=== PATIENT | female | born 2000 | race African-American/Black ===

== ENCOUNTER 2021-10-15 14:32 | Observation (INO) | payer OTHER, SELFPAY ==
--- NOTE | ~2021-10-15 | CT_ITS ---
EXAMINATION: CT abdomen pelvis w con DATE: 10/15/2021 17:18 INDICATION: Right lower quadrant abdominal pain TECHNIQUE: Computed tomography (CT) of the abdomen and pelvis was performed with 100 cc Omnipaque 350 intravenous contrast. Automated exposure control and iterative reconstruction technique were employe d. Exam dose: 1506.55 mGy-cm total exam DLP. COMPARISON: None. FINDINGS: The lung bases are clear. Normal heart size. No pericardial or pleural effusion. The liver, spleen, pancreas, gallbladder, bile ducts, pancreatic duct, and adrenal glands appear norm al. No renal space occupying mass lesion. There is a pinpoint upper pole nonobstructing left renal calculus and a pinpoint lower pole left chalino l nonobstructing calculus. No ureteral calculus or hydroureteronephrosis. Normal caliber of the abdominal aorta. No intraperitoneal or retroperitoneal or pelvic mass lesion or adenopathy or ascites. Normal caliber of the abdominal aorta. No intraperitoneal or retroperitoneal or pelvic mass lesion or adenopathy or ascites. The uterus and adnexal areas and urinary bladder are unremarkable. The appendix is thickened, measuring up to 10 mm diameter, with mild periappendiceal fat stranding. N o abscess is identified. No intraperitoneal free air is detected. The findings suggest acute appendic itis without rupture. No bowel obstruction. Mild diverticulosis of the left colon; no CT evidence of diverticulitis. IMPRESSION: Acute uncomplicated appendicitis Mild left colon diverticulosis 2. Punctate nonobstructing left renal calculi; no urinary tract obstruction or hydronephrosis Reviewed, dictated and finalized at [facility]. Reviewed, dictated and finalized at [facility]. [employer]INEER
[2021-10-15 14:34] VITALS: BP 177/88; PULSE 116; RESP 18; TEMP 35.9; O2SAT 100
[2021-10-15 15:50] LABS: Basophils Percent Auto 0.4 % (0.2-1.2); Eosinophils Absolute Auto 0.1 K/mm3 (0-0.3); Hemoglobin 13.2 g/dL (12.0-15.0); Immature Granulocyte Absolute 0.04 K/mm3 (0.00-0.031); Immature Granulocyte Percent A 0.4 % (0-0.5); Lymphocytes Absolute Auto 2.53 K/mm3 (0.9-3.2); Lymphocytes Percent Auto 23.3 % (18.3-44.2); Mean Corpuscular HGB Conc 32.2 g/dl (32-36); Mean Corpuscular Hemoglobin 27.6 pg (26-34); Mean Corpuscular Volume 85.6 fl (80-100); Mean Platelet Volume 9.2 fl (7.4-10.4); Monocytes Absolute Auto 0.6 K/mm3 (0.1-0.6); Monocytes Percent Auto 5.6 % (2.6-8.5); Neutrophils Absolute Auto 7.5 K/mm3 (1.3-6.7); Neutrophils Percent Auto 69.3 % (45.5-73.1); Platelet Count Result 343 k/mm3 (150-375); Red Blood Count 4.79 M/mm3 (4.2-5.4); White Blood Count 10.9 K/mm3 (4.5-10.0)
[2021-10-15 16:15] LABS: Beta HCG Quantitative < 2.39 mIU/ML
[2021-10-15 16:47] LABS: Lipase 49 U/L (23-300)
[2021-10-15] MEDS: MORPHINE SULFATE (*CRX) 4 MG/ML INJ IV PUSH (16:54)
[2021-10-15] MEDS: SODIUM CHLORIDE 0.9% IV 1,000 ML 999 ML IV CONT (16:54)
[2021-10-15] MEDS: ONDANSETRON INJ 4 MG/2 ML VIAL IV PUSH ×2 (16:54→22:20)
[2021-10-15 17:05] LABS: Add Urine Microscopic? YES; Appearance Urine Clear (Clear); Bacteria Urine Trace /hpf; Bilirubin Urine Negative (Negative); Blood Urine 3+ (Negative); Color Urine Yellow (Yellow); Glucose Urine UA Negative (Negative); Ketones Urine Negative (Negative); Leukocyte Esterase Ur Negative LEU/UL (Negative); Mucus Urine Rare /lpf; Nitrate Urine Negative (Negative); Protein Urine Negative (Negative); RBC Urine 21-50 /hpf (0-2); Specific Grav Ur 1.029 (1.001-1.035); Squamous Epithelial Cell Urine Few /hpf (Few)
[2021-10-15 17:19] LABS: Estimated CRCL calculation 160 ml/min; Estimated Glomerular Filt Rate > 60
[2021-10-15 17:22] VITALS: PULSE 99; RESP 19; O2SAT 86
[2021-10-15 17:45] VITALS: PULSE 97; RESP 17; O2SAT 100
[2021-10-15 18:00] VITALS: PULSE 100; RESP 18; O2SAT 100
--- NOTE | 2021-10-15 18:05 | ED.ABDPAIN ---
HPI - Abdominal Pain General Chief Complaint: Abdominal Pain Stated Complaint: abd pain, ? Time Seen by Provider: 10/15/21 15:24 Source: patient Mode of arrival: ambulatory Limitations: no limitations History of Present Illness HPI narrative: 21 years old -Russian female presents with right lower quadrant pain started yesterday, constant, worse with certain movement. Patient denies any fever, chills, nausea, vomiting. Last menstrual cycle 1 month ago. Related Data Allergies Allergy/AdvReac Type Severity Reaction Status Date / Time No Known Allergies Allergy Verified 10/15/21 14:36 Review of Systems Review of Systems: CONSTITUTIONAL: Denies fever, chills, or sweats. EYES: Denies visual changes, redness, or discharge. ENT: Denies rhinorrhea, congestion, sore throat, or otalgia. CARDIOVASCULAR: Denies chest pain, palpitations, or edema. RESPIRATORY: Denies cough or dyspnea. GASTROINTESTINAL: Denies abdominal pain, nausea, vomiting, or diarrhea. GENITOURINARY: Denies dysuria or hematuria. SKIN: Denies rash or itching. MUSCULOSKELETAL: Denies back pain, joint pain, or myalgia. NEUROLOGIC: Denies headache, numbness, or weakness. PSYCHIATRIC: Denies anxiety or depression. Exam Narrative: General appearance: Well-developed, well-nourished Skin: Normal color Head: Normocephalic, nontraumatic Eyes: Clear conjunctiva ENT: Oropharynx normal, ears normal, nose normal Neck: Supple, nontender Chest and respiratory: Airway patent, no respiratory distress, no accessory muscle use Heart: Regular rate/rhythm Abdomen: Soft, focal tenderness right lower quadrant, positive guarding , no organomegaly, quiet bowel sounds Vascular: Normal peripheral pulses, normal capillary refill. 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, no gross motor deficit Course Course Emergency Course: Stable Consultations Consultation #1: DR HAWKINS Date: 10/15/21 Time: 18:20 Vital Signs Vital signs: Vital Signs Temperature 35.9 C L 10/15/21 14:34 Pulse Rate 116 H 10/15/21 14:34 Respiratory Rate 18 10/15/21 14:34 Blood Pressure 177/88 H 10/15/21 14:34 Pulse Oximetry 100 10/15/21 14:34 Temperature 35.9 C L 10/15/21 14:34 Pulse Rate 116 H 10/15/21 14:34 Respiratory Rate 18 10/15/21 14:34 Blood Pressure 177/88 H 10/15/21 14:34 Pulse Oximetry 100 10/15/21 14:34 MDM - Abdominal Pain MDM Narrative Medical decision making narrative: Right lower quadrant pain. Appendicitis versus ruptured ovarian cyst is my concern. Differential Diagnosis Differential diagnosis: Likely abdominal pain, acute appendicitis, calculus of kidney, constipation and diverticulitis Lab Data Result diagrams: 10/15/21 15:41 10/15/21 17:13 Labs: Lab Results 10/15/21 10/15/21 10/15/21 Range/Units 15:40 15:41 15:41 WBC 10.9 H (4.5-10.0) K/mm3 RBC 4.79 (4.2-5.4) M/mm3 Hgb 13.2 (12.0-15.0) g/dL Hct 41.0 (37.0-47.0) % MCV 85.6 (80-100) fl MCH 27.6 (26-34) pg MCHC 32.2 (32-36) g/dl RDW 13.0 (11.5-14.5) % Plt Count 343 (150-375) k/mm3 MPV 9.2 (7.4-10.4) fl Immature Gran % (Auto) 0.4 (0-0.5) % Neut % (Auto) 69.3 (45.5-73.1) % Lymph % (Auto) 23.3 (18.3-44.2) % [place] % (Auto) 5.6 (2.6-8.5) % Eos % (Auto) 1.0 (0-4.4) % Baso % (Auto) 0.4 (0.2-1.2) % Lymph # (Auto) 2.53 (0.9-3.2) K/mm3 [place] # (Auto) 0.6 (0.1-0.6) K/mm3 Eos # (Auto) 0.1 (0-0.3) K/mm3 Baso # (Auto) 0.0 (0.0-0.1) K/mm3 Abs Immat Gran (auto) 0.04 H (0.00-0.031) K/mm3 Absolute Neuts (auto) 7.5 H (1
[2021-10-15 18:45] VITALS: PULSE 92; RESP 19; O2SAT 100
[2021-10-15] MEDS: LACTATED RINGERS 1,000 ML 150 ML IV CONT ×2 (19:20→22:04)
[2021-10-15] MEDS: HYDROmorphone HCL INJ (*CRX) 1 MG/ML SYR 0.5 MG IV PUSH ×2 (19:30→22:09)
[2021-10-15 20:04] LABS: SARS-CoV-2 RNA PCR Negative
[2021-10-15 22:00] VITALS: BP 138/80; PULSE 98; RESP 20; TEMP 36.9; O2SAT 100; BMI 60.9
--- NOTE | 2021-10-15 23:15 | ADMGEN ---
This patient, Janie Rodriges, was admitted to [facility] Surg Room 316-02. Patient/family oriented to hospital policies and general routines including ID bracelet, bed and alarms, visiting hours, pain management, procedures, bathroom and other care routines, personal items, smoking policy, room service/diet, and visiting hours. Information on how to activate the Rapid Response Team has been discussed. Patient/Family are encouraged to report perceived risks to care and to ask questions if they do not understand what they are told or what they should do.
[2021-10-16] VITALS (10 sets, daily range): BP systolic 110–153; BP diastolic 76–95; PULSE 82–107; RESP 14–22; TEMP 36–36.6; O2SAT 93–100; BMI 60.9
[2021-10-16] MEDS: LACTATED RINGERS 1,000 ML 150 ML IV CONT (04:54)
[2021-10-16] MEDS: ONDANSETRON INJ 4 MG/2 ML VIAL IV PUSH (07:56)
[2021-10-16 09:38] LABS: Hematocrit 39.8 % (37.0-47.0); Hemoglobin 12.6 g/dL (12.0-15.0); Mean Corpuscular HGB Conc 31.7 g/dl (32-36); Mean Corpuscular Hemoglobin 28.1 pg (26-34); Mean Corpuscular Volume 88.6 fl (80-100); Mean Platelet Volume 9.3 fl (7.4-10.4); Platelet Count Result 332 k/mm3 (150-375); Red Blood Count 4.49 M/mm3 (4.2-5.4); White Blood Count 9.7 K/mm3 (4.5-10.0)
[2021-10-16] MEDS: ENOXAPARIN 40 MG/0.4 ML SYRINGE SUB-Q (09:41)
--- NOTE | 2021-10-16 10:04 | PM.IMHP ---
H&P: HPI History of Present Illness Date/Time: 10/16/21 10:04 Chief Complaint: Abdominal pain, nausea Narrative: Patient is a 21-year-old woman who 2 days ago started having some mid even upper abdominal pain. This moved to the right lower quadrant. It has become more severe. She also has some nausea but no vomiting. In the emergency room she was noted to have tenderness in the right lower quadrant. [place] white blood [place] [id number]. She had some tachycardia but was afebrile. CT scan of the abdomen pelvis was done and showed a 10 mm dilated appendix with a thickened wall in some periappendiceal stranding suggestive of acute appendicitis. She was started on IV antibiotics but continues to have pain and nausea. She is admitted now for treatment of acute appendicitis. Review of Systems Review of Systems: All systems reviewed & are unremarkable except as noted in HPI and below Constitutional: Constitutional: Denies chills and Denies fever(s) Cardiovascular: Cardiovascular: Denies chest pain, Denies diaphoresis, Denies dyspnea and Denies paroxysmal nocturnal dyspnea Respiratory: Respiratory: Denies chest congestion, Denies cough and Denies dyspnea Integumentary/Breasts: Skin/Breast: Denies lesions and Denies rash PMFSH Social History Social History Smoking status: Never smoker Second hand tobacco smoke exposure: No Alcohol intake: never Substance use: never Substance use type: does not use Spiritual care concerns: No Meds Home Medications and Allergies Home Medications Medication Instructions Recorded Confirmed Type No Home Medications 10/15/21 10/15/21 History Allergies Allergy/AdvReac Type Severity Reaction Status Date / Time No Known Allergies Allergy Verified 10/15/21 14:36 Vital Signs Vital Signs - 24 hr 10/15/21 14:34 10/15/21 17:22 10/15/21 17:45 Temperature 35.9 C L Pulse Rate 116 H 99 97 Respiratory Rate 18 19 17 Blood Pressure 177/88 H Pulse Oximetry 100 86 L 100 10/15/21 18:00 10/15/21 18:45 10/15/21 22:00 Temperature 36.9 C Pulse Rate 100 92 98 Respiratory Rate 18 19 20 Blood Pressure 138/80 Pulse Oximetry 100 100 100 10/16/21 04:35 10/16/21 05:45 10/16/21 09:50 Temperature 36.5 C 36.0 C L Pulse Rate 101 H 95 Respiratory Rate 18 18 Blood Pressure 110/80 141/86 H Pulse Oximetry 100 98 98 Exam Const: General: cooperative, no acute distress, alert, awake, tired appearing, uncomfortable and well groomed; No confusion Nutritional Appearance: obese morbidly obese (BMI 61) Orientation/consciousness: No confusion Limitations: no limitations HENMT: Head: normocephalic, atraumatic, no contusions and no scalp lesions Ears: external ears normal General nose exam: Normal external nose present Face and sinus: face symmetric and dry mucous membranes Mouth: Yes Normal oral and palatal mucosa present and Yes tongue normal Throat: posterior oropharynx normal Eyes: Conjunctivae: conjunctivae normal Sclera: sclerae normal Pupils: Equal, round and reactive pupils present EOM: EOMs intact bilaterally Neck: Neck: normal visual inspection, no lymphadenopathy, trachea midline, supple, nontender and no JVD Thyroid: abnormal thyroid Resp: Effort & Inspection: normal respiratory effort Auscultation: clear to auscultation bilaterally Cardio: Rate: regular rate Rhythm: regular rhythm GI: Inspection: normal to inspection, obesity, no scars and no visible herniation GI Palp: Yes Soft to palpation, Yes Tenderness to palpation present (GI) (Mostly right lower quadrant), Yes Guarding due to palpation present (GI) (Right lower quadrant), No Hepatomegaly present, No Splenomegaly present and Yes Rebound tenderness present Auscultation: normal bowel sounds Skin: General skin exam: normal color, turgor normal and no erythema Lesions: no lesions Rashes: no rashes Trauma: no lacerations or abrasions Neuro:
--- NOTE | 2021-10-16 13:38 | PC.NURSE ---
This patient, Janie Rodriges, was transferred to [SURGERY] on 10/16/21 at 1330. Personal belongings sent with patient. Report given to [ ]. Appropriate documentation sent with patient. Pt staying in PACU after appendectomy.
--- NOTE | 2021-10-16 14:03 | WPDANESEPPF ---
Anes - Initial Pre Proc Eval Procedure: Operation Date: 10/16/21 15:00 Proposed Procedures p Laparoscopic Appendectomy - Av Gallegos MD Date/Time: 10/16/21 14:03 Surgeon: Av Gallegos MD Pre Op Diagnosis: Acute Appendicitis Patient Data Age: 21 Gender: F Height: 1.52 m Weight: 141.5 kg Last Vital Signs Temp 36.0 C L 10/16/21 09:50 Pulse 95 10/16/21 09:50 Resp 18 10/16/21 09:50 BP 141/86 H 10/16/21 09:50 Pulse Ox 98 10/16/21 09:50 Allergies Allergy/AdvReac Type Severity Reaction Status Date / Time No Known Allergies Allergy Verified 10/15/21 14:36 Home Medications Medication Instructions Recorded Confirmed Type No Home Medications 10/15/21 10/15/21 History Laboratory Tests 10/15/21 10/15/21 10/15/21 15:40 15:41 15:41 WBC 10.9 K/mm3 H K/mm3 (4.5-10.0) RBC 4.79 M/mm3 M/mm3 (4.2-5.4) Hgb 13.2 g/dL g/dL (12.0-15.0) Hct 41.0 % % (37.0-47.0) MCV 85.6 fl fl (80-100) MCH 27.6 pg pg (26-34) MCHC 32.2 g/dl g/dl (32-36) RDW 13.0 % % (11.5-14.5) Plt Count 343 k/mm3 k/mm3 (150-375) MPV 9.2 fl fl (7.4-10.4) Immature Gran % (Auto) 0.4 % % (0-0.5) Neut % (Auto) 69.3 % % (45.5-73.1) Lymph % (Auto) 23.3 % % (18.3-44.2) [place] % (Auto) 5.6 % % (2.6-8.5) Eos % (Auto) 1.0 % % (0-4.4) Baso % (Auto) 0.4 % % (0.2-1.2) Lymph # (Auto) 2.53 K/mm3 K/mm3 (0.9-3.2) [place] # (Auto) 0.6 K/mm3 K/mm3 (0.1-0.6) Eos # (Auto) 0.1 K/mm3 K/mm3 (0-0.3) Baso # (Auto) 0.0 K/mm3 K/mm3 (0.0-0.1) Abs Immat Gran (auto) 0.04 K/mm3 H K/mm3 (0.00-0.031) Absolute Neuts (auto) 7.5 K/mm3 H K/mm3 (1.3-6.7) Absolute Nucleated RBC 0.0 K/mm3 K/mm3 (0.0-0.012) Nucleated RBC % 0.0 % % (0.0-0.2) Creatinine Estim Creat Clear Calc Estimated GFR Lipase 49 U/L U/L (23-300) Beta HCG, Quant < 2.39 mIU/ML mIU/ML Urine Color Urine Appearance Urine pH Ur Specific [place] Urine Protein Urine Glucose (UA) Urine Ketones Ur Blood (Man) Urine Nitrate Urine Bilirubin Urine Urobilinogen Leukocyte Esterase Rfl Urine RBC Urine WBC Ur Squamous Epith Cells Urine Bacteria Urine Mucus SARS-CoV-2 RNA (RT-PCR) Blood Type Antibody Screen Screen Baby's Blood Type Baby's JUAN Doses of RhIg Required 10/15/21 10/15/21 10/15/21 15:41 16:54 17:13 WBC RBC Hgb Hct MCV MCH MCHC RDW Plt Count MPV Immature Gran % (Auto) Neut % (Auto) Lymph % (Auto) [place] % (Auto) Eos % (Auto) Baso % (Auto) Lymph # (Auto) [place] # (Auto) Eos # (Auto) Baso # (Auto) Abs Immat Gran (auto) Absolute Neuts (auto) Absolute Nucleated RBC Nucleated RBC % Creatinine 0.60 mg/dL L mg/dL (0.7-1.2) Estim Creat Clear Calc 160 ml/min ml/min Estimated GFR > 60 (59 - ) Lipase Beta HCG, Quant Urine Color Yellow (Yellow) Urine Appearance Clear (Clear) Urine pH 5.0 (5.0-9.0) Ur Specific [place] 1.029 (1.001-1.035) Urine Protein Negative mg/dL mg/dL (Negative) Urine Glucose (UA) Negative mg/dL mg/dL (Negative) Urine Ketones Negative
[2021-10-16] MEDS: LACTATED RINGERS 1,000 ML 30 ML IV CONT ×2 (14:09→16:08)
[2021-10-16] MEDS: SCOPOLAMINE 1.5 MG PATCH TRANSDERM (14:10)
--- NOTE | 2021-10-16 14:44 | WPDHPUPDATE1 ---
History and Physical Update Update Date/Time: 10/16/21 14:44 History and Physical has been reviewed, including an updated exam of the patient. There are NO changes in the patient's condition. Risks, benefits, and alternatives have been discussed and questions answered. Patient agrees to proceed with procedure.
[2021-10-16] MEDS: ceFAZolin 3 GM/D5W 100 ML 100 ML IVPB (15:03)
[2021-10-16] MEDS: BUPIVACAINE/EPINEPHRINE 0.5% 30 ML VIAL INFILTRATE (15:51)
--- NOTE | 2021-10-16 16:01 | W.PM.PROC2 ---
Procedure Note - Detailed Date of Procedure 10/16/21 Pre-op Diagnosis Acute Appendicitis Post-op Diagnosis same Procedure Performed Laparoscopic appendectomy Surgeon Av Gallegos MD Family Medicine Physician Assistant Zehra PENA Anesthesia general and local (0.5% Marcaine with epinephrine) Indications Patient came to the emergency room with right lower quadrant abdominal pain and nausea. Her white count was slightly elevated and she was tachycardic. She had tenderness with guarding in the right lower quadrant. CT scan showed early acute appendicitis. She is taken to surgery now for laparoscopic appendectomy. Findings Acute non perforated appendicitis Description of Procedure Patient was taken to surgery and induced into general anesthesia. The abdomen is prepped and draped. Trocars were placed in the usual fashion using a 5 mm camera and applied Medical optical trocars. Two 5 mm ports were placed as well as a left lower quadrant 10 11 port. Patient was placed in Trendelenburg with the right-side elevated. The appendix was found fairly easily. It did appear inflamed but there was no evidence of gangrenous change or perforation. The appendix was elevated anteriorly. We used the cautery to dissect out the appendiceal artery. The appendiceal artery was then thoroughly cauterized and divided. I then dissected the remaining mesoappendix and skeletonized the base of the appendix. I then ligated the base of the appendix with a Vicryl endoloop. The appendix was amputated just above the base and the mucosa of the appendiceal stump was cauterized. The appendix was placed immediately in an Endo-Catch bag. It was retrieved through the 10 11 left lower quadrant trocar site. We then replaced the left lower quadrant trocar reviewed the areas of dissection as well as the appendiceal stump. All looked good with no evidence of bleeding or other problems. We then evacuated CO2 and removed the trocar sleeves. Skin wounds were closed with subcuticular 4-0 Monocryl skin suture. The wounds were dressed with Exofin surgical adhesive. Patient was awakened and taken to recovery in good condition sponge and needle counts were correct x2. Estimated Blood Loss -5 Urine Output 300 Drains No Packing No Pathology yes (Appendix) Complications No immediate complications Condition stable Disposition PACU
--- NOTE | 2021-10-16 16:11 | PM.DS ---
DS: Admitting Diagnosis Discharge Date 10/16/2021 Admitting Diagnosis Acute appendicitis DS: Discharge Diagnosis Discharge Diagnosis (1) Acute appendicitis: Qualifiers: Acute appendicitis type: unspecified acute appendicitis type Qualified Code(s): K35.80 - Unspecified acute appendicitis Code(s): K35.80 - Unspecified acute appendicitis Status: Acute (2) Morbid obesity with BMI of 60.0-69.9, adult: Code(s): E66.01 - Morbid (severe) obesity due to excess calories; Z68.44 - Body mass index [BMI] 60.0-69.9, adult Status: Chronic DS: Summary Hospital Course Hospital Course: Patient was admitted with right lower quadrant pain and evidence of acute appendicitis by evaluation and CT scan. She was started on Zosyn antibiotics. Discussion regarding medical treatment versus surgical treatment was carried out. Patient continued to have nausea and right lower quadrant pain. We opted to proceed with laparoscopic appendectomy which was done on 10/16/2021. The surgery went well. Patient had the clinical appearance of acute non perforated appendicitis. She was doing well and able to be discharged after a period of observation. Status at Discharge Functional status at discharge: independent ambulation Overall status at discharge: patient is progressing back to baseline Time Spent with Patient Time attestation: Total time spent providing and/or coordinating discharge services: DS: Data Data Completed and Pending Pending studies at discharge: Pending at discharge 10/16/21 15:46 Surgical [PTH] Routine Labs on day of discharge: Labs from last 24 hours 10/16/21 10/15/21 10/15/21 08:57 19:21 17:13 WBC 9.7 RBC 4.49 Hgb 12.6 Hct 39.8 MCV 88.6 MCH 28.1 MCHC 31.7 L RDW 13.0 Plt Count 332 MPV 9.3 Creatinine 0.60 L Estim Creat Clear Calc 160 Estimated GFR > 60 Lipase Beta HCG, Quant Urine Color Urine Appearance Urine pH Ur Specific [place] Urine Protein Urine Glucose (UA) Urine Ketones Ur Blood (Man) Urine Nitrate Urine Bilirubin Urine Urobilinogen Leukocyte Esterase Rfl Urine RBC Urine WBC Ur Squamous Epith Cells Urine Bacteria Urine Mucus SARS-CoV-2 RNA (RT-PCR) Negative Blood Type Antibody Screen Screen Baby's Blood Type Baby's JUAN Doses of RhIg Required 10/15/21 10/15/21 10/15/21 16:54 15:41 15:41 WBC RBC Hgb Hct MCV MCH MCHC RDW Plt Count MPV Creatinine Estim Creat Clear Calc Estimated GFR Lipase Beta HCG, Quant < 2.39 Urine Color Yellow Urine Appearance Clear Urine pH 5.0 Ur Specific [place] 1.029 Urine Protein Negative Urine Glucose (UA) Negative Urine Ketones Negative Ur Blood (Man) 3+ H Urine Nitrate Negative Urine Bilirubin Negative Urine Urobilinogen 2.0 H Leukocyte Esterase Rfl Negative Urine RBC 21-50 H Urine WBC 4-6 H Ur Squamous Epith Cells Few Urine Bacteria Trace Urine Mucus Rare SARS-CoV-2 RNA (RT-PCR) Blood Type AB Positive Antibody Screen Negative Screen TNP Baby's Blood Type Not Reportable Baby's JUAN Not Reportable Doses of RhIg Required 0 10/15/21 15:40 WBC RBC Hgb Hct MCV MCH MCHC RDW Plt Count MPV Creatinine Estim Creat Clear Calc Estimated GFR Lipase 49 Beta HCG, Quant Urine Color Urine Appearance Urine pH Ur Specific [place] Urine Protein Urine Glucose (UA) Urine Ketones Ur Blood (Man) Urine Nitrate Urine Bilirubin Urine Urobilinogen Leukocyte Esterase Rfl Urine RBC Urine WBC Ur Squamous Epith Cells Urine Bacteria Urine Mucus SARS-CoV-2 RNA (RT-PCR) Blood Type Antibody Screen Screen Baby's Blood Type Baby's JUAN Doses of RhIg Required Discharge Plan Discharge Attending physician on discharge: El
== END 2021-10-16 20:10 | disposition home or self-care (01) ==
LOC: ANHED 18:09 → ANH3MEDSUR 20:26
PROVIDERS: Admitting Provider Surgery; Emergency Provider Emergency Medicine; Visit Provider Surgery
PROC: 0DTJ4ZZ Resection of Appendix, Percutaneous Endoscopic Approach (ICD-10-PCS; CPT 44970; principal; 2021-10-16 15:00)
DX: K35.30 Acute appendicitis with localized peritonitis, without perforation or gangrene (principal); E66.01 Morbid (severe) obesity due to excess calories; Z68.44 Body mass index [BMI] 60.0-69.9, adult
CPT/HCPCS: 44970; 36415; 74177; 81001; 83690; 84702; 85025; 85027; 85461; 88304; 96361; 96365; 96372; 96375; 96376; 99285; A9270; C9803; G0378; G0379; J0131; J0330; J0690; J1170; J1650; J2250; J2270; J2405; J2543; J2704; J7030; J7120; Q9967; U0003; U0005

== ENCOUNTER 2022-04-02 00:37 | Emergency (ER) | payer OTHER, SELFPAY ==
--- NOTE | ~2022-04-02 | XR_ITS ---
EXAMINATION: XR chest 2V DATE: 04/02/2022 01:30 INDICATION: Left-sided chest pain with inspiration TECHNIQUE: PA and lateral views of the chest were obtained. COMPARISON: None FINDINGS: The lungs are clear with no focal airspace opacities, pulmonary edema, pleural effusion or pneumothor ax. The cardiomediastinal silhouette is normal. Visualized bones and soft tissues are unremarkable. IMPRESSION: 1. No acute cardiopulmonary disease. Reviewed, dictated and finalized at location [facility].
[2022-04-02 01:02] VITALS: BP 170/85; PULSE 91; RESP 17; TEMP 36.6; O2SAT 100
[2022-04-02 01:05] VITALS: PULSE 91; RESP 17; O2SAT 99
--- NOTE | 2022-04-02 01:23 | ECG_ITS ---
Measurements Intervals [place] Rate: 90 P: 35 CO: 154 QRS: 21 QRSD: 87 T: 1 QT: 315 QTc: 387 Interpretive Statements SINUS RHYTHM BORDERLINE ST-T WAVE ABNORMALITY- INFERIOR LEADS BASELINE ARTIFACT- I, III, AVR, AVL BORDERLINE ECG Electronically Signed On 04-02-2022 9:13:17 CDT by Edmond Hendricks D.O.
--- NOTE | 2022-04-02 01:24 | ED.GENADULT ---
HPI - General Adult General Chief complaint: Unspecified Stated complaint: left rib pain x1 wk Time Seen by Provider: 04/02/22 01:14 History of Present Illness HPI narrative: Patient is a 21-year-old female here for evaluation of atraumatic left rib pain for the past week. Patient states the pain is sharp and shooting in nature, begins under her left lateral breast and radiates to her left neck. States that the pain is intermittent in nature, notes it is worse with certain positions. Has not taken any medication for pain. Additionally notes that she has had intermittent palpitations for the past 2 weeks, where she feels that her heart skips a beat. These are not exertional. Denies any chest pain, syncope, headaches, visual changes, shortness of breath, or trauma to her thorax. Related Data Allergies Allergy/AdvReac Type Severity Reaction Status Date / Time No Known Allergies Allergy Verified 04/02/22 00:56 Review of Systems Review of Systems: Gen: Denies fevers or chills Eyes: Denies eye pain or visual change ENT: Denies congestion Respiratory: Denies shortness of breath or cough CV: Reports palpitations. Denies chest pain GI: Denies abdominal pain nausea, emesis or diarrhea : denies burning, urgency, frequency or hematuria Musculoskeletal: Reports left-sided rib pain Neuro: Denies numbness, tingling, weakness or focal weakness Skin: Denies rash Except as documented, all other systems reviewed and negative PMFSH Past Medical History Medical History (Updated 04/02/22 @ 02:32 by Dolores Pelayo PA-C) Asthma Surgical History Surgical History (Updated 02/08/22 @ 13:57 by Naomy Duckworth MA) Hx of appendectomy Social History Social History (Updated 02/08/22 @ 13:58 by Naomy Duckworth MA) Smoking status: Never smoker Second hand tobacco smoke exposure: No Alcohol intake: never Substance use: never Substance use type: does not use Additional occupation/education comments: [employer] Gender identity (if verbalized by the patient): Female Sexual Orientation (if Verbalized by the Patient): Straight or Heterosexual Spiritual care concerns: No Exam Narrative: APPEARANCE: Well appearing, no pain in distress, well-nourished. Obese Head: Normocephalic and atraumatic. EYES: PERRLA/EOMI, conjunctivae clear NOSE: No nasal drainage EARS: External ear normal in appearance THROAT: Oropharynx is clear. Mucous membranes are moist. NECK: Supple, full range of motion without pain. No adenopathy, no masses. no midline tenderness to c spine. RESPIRATORY: Airway patent, respirations nonlabored. Clear to auscultation bilaterally, no rales, rhonchi, wheezing. CARDIOVASCULAR: Regular rate and rhythm without murmurs, rubs, or gallops. ABDOMINAL: Normoactive bowel sounds. Soft, nontender, nondistended. No rebound tenderness or guarding. MUSCULOSKELETAL: reproducible pain along left side of thorax. Extremities are warm and well-perfused. Moves all extremities well. No edema. NEURO: Normal speech. No focal neurologic deficits. SKIN: Skin is warm and dry. No rashes. PSYCHIATRIC: Normal affect/mood. Course Vital Signs Vital signs: Vital Signs Temperature 36.6 C 04/02/22 01:02 Pulse Rate 91 04/02/22 01:02 Respiratory Rate 17 04/02/22 01:02 Blood Pressure 170/85 H 04/02/22 01:02 Pulse Oximetry 100 04/02/22 01:02 Oxygen Delivery Room Air 04/02/22 01:02 Temperature 36.6 C 04/02/22 01:02 Pulse Rate 91 04/02/22 01:05 Respiratory Rate 17 04/02/22 01:05 Blood Pressure 170/85 H 04/02/22 01:02 Pulse Oximetry 99 04/02/22 01:05 Oxygen Delivery Room Air 04/02/22 01:02 Medical Decision Making [facility] Narrative Medical decision making narrative: 21 year old female here for evaluation of left sided lateral rib pain for the past week and some intermittent, non-exertional heart palpitations. Her vital signs are normal, her pain is reproducible with palpation of her thorax so f
[2022-04-02 02:09] LABS: Basophils Percent Auto 0.3 % (0.2-1.2); Eosinophils Absolute Auto 0.1 K/mm3 (0-0.3); Eosinophils Percent Auto 0.8 % (0-4.4); Hemoglobin 12.5 g/dL (12.0-15.0); Immature Granulocyte Absolute 0.04 K/mm3 (0.00-0.031); Immature Granulocyte Percent A 0.3 % (0-0.5); Lymphocytes Absolute Auto 3.36 K/mm3 (0.9-3.2); Lymphocytes Percent Auto 28.1 % (18.3-44.2); Mean Corpuscular HGB Conc 31.3 g/dl (32-36); Mean Corpuscular Volume 86.4 fl (80-100); Mean Platelet Volume 9.4 fl (7.4-10.4); Monocytes Absolute Auto 0.8 K/mm3 (0.1-0.6); Monocytes Percent Auto 6.8 % (2.6-8.5); Neutrophils Absolute Auto 7.6 K/mm3 (1.3-6.7); Neutrophils Percent Auto 63.7 % (45.5-73.1); Platelet Count Result 337 k/mm3 (150-375); Red Blood Count 4.63 M/mm3 (4.2-5.4); Red Cell Distribution Width 13.5 % (11.5-14.5)
[2022-04-02 02:27] LABS: Alanine Aminotransferase 26 U/L (6-35); Albumin Level 4.2 g/dL (3.5-5.1); Alkaline Phosphatase 107 U/L (38-126); Anion Gap 7 mmol/L (8-16); Aspartate Amino Transferase 21 U/L (14-36); Bilirubin,Total 0.4 mg/dL (0.2-1.3); Blood Urea Nitrogen 15 mg/dL (7-17); Calcium 9.2 mg/dL (8.4-10.2); Carbon Dioxide 26 mmol/L (22-30); Chloride 106 mmol/L (98-107); Estimated CRCL calculation 108 ml/min; Estimated Glomerular Filt Rate > 60; Glucose 107 mg/dL (65-110); Potassium 4.2 mmol/L (3.4-5.0); Sodium 139 mmol/L (137-145)
[2022-04-02 03:21] VITALS: BP 147/99; PULSE 89; RESP 16; O2SAT 100
== END 2022-04-02 03:21 | disposition home or self-care (01) ==
PROVIDERS: Physician Assistant; Emergency Provider Emergency Medicine; PCP Nurse Practitioner Family
DX: R07.81 Pleurodynia (principal); J45.909 Unspecified asthma, uncomplicated; R94.31 Abnormal electrocardiogram [ECG] [EKG]
CPT/HCPCS: 36415; 71046; 80053; 81025; 84443; 85025; 93005; 99283

== ENCOUNTER 2022-10-18 14:55 | Outpatient (CLI) | payer OTHER, SELFPAY ==
--- NOTE | ~2022-10-18 | US_ITS ---
US breast LT limited 10/18/2022 15:52 Indication: Palpable left breast abnormality Procedure: High-resolution Limited ultrasound of the left breast Comparison: No prior studies for comparison. Findings: In the area palpable concern there is an oval encapsulated isoechoic mass with horizontal s triations, no posterior features and no internal vascularity measuring 1.7 cm, compatible with benign lipoma. No suspicious masses to suggest malignancy. Impression: 1: Benign left breast mass at 3:00, 11 cm from the nipple in the area of palpable concern, consistent with lipoma. BI-RADS CATEGORY 2 - BENIGN FINDINGS Reviewed, dictated and finalized at location A. RUCTIONAL TECHNOLOGIST Impression: 1: Benign left breast mass at 3:00, 11 cm from the nipple in the area of palpab le concern, consistent with lipoma. BI-RADS CATEGORY 2 - BENIGN FINDINGS
== END 2022-10-18 14:56 | disposition home or self-care (01) ==
LOC: ANHIMG 14:56
PROVIDERS: PCP Nurse Practitioner Family; Visit Provider Obstetrics & Gynecology
DX: N63.20 Unspecified lump in the left breast, unspecified quadrant (principal); N64.4 Mastodynia
CPT/HCPCS: 76642

== ENCOUNTER 2022-11-04 21:59 | Emergency (ER) | payer OTHER, SELFPAY ==
[2022-11-04 22:17] VITALS: BP 145/101; PULSE 79; RESP 16; TEMP 36.7; O2SAT 100
--- NOTE | 2022-11-04 23:51 | PC.NURSE ---
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
== END 2022-11-04 23:51 | disposition left against medical advice (07) ==
PROVIDERS: PCP Nurse Practitioner Family
DX: S61.214A Laceration without foreign body of right ring finger without damage to nail, initial encounter (principal); W26.8XXA Contact with other sharp object(s), not elsewhere classified, initial encounter
CPT/HCPCS: 99199

== ENCOUNTER 2023-01-22 12:48 | Emergency (ER) | payer OTHER, SELFPAY ==
--- NOTE | ~2023-01-22 | CT_ITS ---
EXAMINATION: CT abdomen pelvis wo con DATE: 01/22/2023 15:05 INDICATION: Left flank pain. History of kidney stones. Nausea and vomiting. TECHNIQUE: Computed tomography (CT) of the abdomen and pelvis was performed without intravenous contr ast. The dose-length product was 1400.26 mGy-cm. Automated exposure control and iterative reconstruct ion technique were employed. COMPARISON: CT dated 10/15/2021 FINDINGS: Lung bases are unremarkable. Heart size normal. No significant pleural or pericardial effus ion. The liver, spleen, pancreas, adrenal glands are unremarkable for noncontrast CT. There are nonob structing punctate bilateral renal stones. There is a left UPJ stone measuring 3 mm with hydronephros is. Bladder is unremarkable. No significant vascular abnormality. No lymphadenopathy. Nonobstructive bowel pattern. There are stable nonenlarged ileocolic lymph nodes which are likely reactive. IMPRESSION: 1. 3 mm left UPJ stone with mild hydronephrosis. 2: Nonobstructing bilateral nephrolithiasis. Reviewed, dictated and finalized at location L.
--- NOTE | ~2023-01-22 | XR_ITS ---
EXAMINATION: XR abdomen/kub 1V DATE: 01/22/2023 16:50 INDICATION: 3 mm UPJ stone TECHNIQUE: A supine view of the abdomen on 2 radiographs was obtained. COMPARISON: CT dated 01/23/2023 FINDINGS: The stone seen on prior CT in the bilateral kidneys and at the proximal left ureter are unable to be distinguished mottled appearing stool and bowel gas in the superimposed colon likely due to the small size of the stones. No dilated bowel to suggest obstruction. Bones are unremarkable. IMPRESSION: 1. Small bilateral nephrolithiasis seen on prior CT is unable to be appreciated on the plain radiogra phs likely due to combination of small size of the stones and superimposed stool and bowel gas. Reviewed, dictated and finalized at location A. IMPRESSION: 1. Small bilateral nephrolithiasis seen on prior CT is unable to be appreciated on the plain radiographs likely due to combination of small size of the stones and superimposed stool and bowel gas.
[2023-01-22 13:01] VITALS: BP 157/100; PULSE 84; RESP 16; TEMP 36.7; O2SAT 100
[2023-01-22 13:37] LABS: Basophils Percent Auto 0.1 % (0.2-1.2); Eosinophils Absolute Auto 0.1 K/mm3 (0-0.3); Hematocrit 38.2 % (37.0-47.0); Hemoglobin 11.9 g/dL (12.0-15.0); Immature Granulocyte Absolute 0.02 K/mm3 (0.00-0.031); Immature Granulocyte Percent A 0.2 % (0-0.5); Lymphocytes Absolute Auto 1.72 K/mm3 (0.9-3.2); Lymphocytes Percent Auto 19.3 % (18.3-44.2); Mean Corpuscular HGB Conc 31.2 g/dl (32-36); Mean Corpuscular Hemoglobin 26.7 pg (26-34); Mean Corpuscular Volume 85.7 fl (80-100); Mean Platelet Volume 9.4 fl (7.4-10.4); Monocytes Absolute Auto 0.5 K/mm3 (0.1-0.6); Monocytes Percent Auto 6.1 % (2.6-8.5); Neutrophils Absolute Auto 6.5 K/mm3 (1.3-6.7); Neutrophils Percent Auto 73.3 % (45.5-73.1); Platelet Count Result 306 k/mm3 (150-375); Red Blood Count 4.46 M/mm3 (4.2-5.4); Red Cell Distribution Width 13.3 % (11.5-14.5); White Blood Count 8.9 K/mm3 (4.5-10.0)
[2023-01-22 13:39] LABS: Appearance Urine Clear (Clear); Bacteria Urine None Seen /hpf; Bilirubin Urine Negative (Negative); Color Urine Yellow (Yellow); Glucose Urine UA Negative (Negative); Ketones Urine Negative (Negative); Leukocyte Esterase Ur Trace LEU/UL (Negative); Nitrate Urine Negative (Negative); Non Pathogenic Casts 0-2; Protein Urine Negative (Negative); RBC Urine 0-2 /hpf (0-2); Squamous Epithelial Cell Urine Few /hpf (Few)
[2023-01-22 13:50] LABS: Alanine Aminotransferase 19 U/L (6-35); Albumin Level 4.1 g/dL (3.5-5.1); Alkaline Phosphatase 101 U/L (38-126); Anion Gap 6 mmol/L (8-16); Aspartate Amino Transferase 20 U/L (14-36); Bilirubin,Total 0.7 mg/dL (0.2-1.3); Blood Urea Nitrogen 14 mg/dL (7-17); Calcium 8.7 mg/dL (8.4-10.2); Carbon Dioxide 30 mmol/L (22-30); Chloride 104 mmol/L (98-107); Estimated CRCL calculation 83 ml/min; Estimated Glomerular Filt Rate > 60; Glucose 104 mg/dL (65-110); Sodium 140 mmol/L (137-145)
[2023-01-22 13:53] LABS: Add Urine Microscopic? YES
--- NOTE | 2023-01-22 14:46 | ED.FEMALEGU ---
HPI - Female Genitourinary General Chief complaint: Urogenital-Female Stated complaint: Flank pain Time Seen by Provider: 01/22/23 13:37 Source: patient Mode of arrival: ambulatory Limitations: no limitations History of Present Illness HPI Narrative: Patient is a 22-year-old female who presents to the ED with reports of left flank and abdominal pain. Patient reports having pain for the last 3 days. She was seen at [facility] 3 days ago and diagnosed with a left-sided kidney stone. She is unsure of the size. She was discharged home with Flomax, Levaquin, Percocet, Zofran, however has had increasing pain today in her left flank and left lower abdomen. She reported having nausea and vomiting today, unable to keep down any food or drink, which prompted her presentation. She is able to urinate. Denies dysuria, hematuria. Denies fevers. Denies diarrhea, constipation. Related Data Allergies Allergy/AdvReac Type Severity Reaction Status Date / Time No Known Allergies Allergy Verified 11/04/22 22:00 Review of Systems Review of Systems: CONSTITUTIONAL: Denies fever, chills, or sweats. CARDIOVASCULAR: Denies chest pain. RESPIRATORY: Denies dyspnea. GASTROINTESTINAL: See HPI. GENITOURINARY: Denies dysuria or hematuria. SKIN: Denies rash or itching. MUSCULOSKELETAL: See HPI. NEUROLOGIC: Denies headache, numbness, or weakness. All systems reviewed & are unremarkable except as noted in HPI and below PMFSH Past Medical History Medical History Asthma Depression Hypertension Kidney stones Surgical History Surgical History History of tonsillectomy and adenoidectomy Hx of appendectomy (~10/2021) Social History Social History Smoking status: Never smoker Second hand tobacco smoke exposure: No Alcohol intake: never Substance use: never Substance use type: does not use Living arrangements: other Additional living arrangements comments: single Occupation/Education: occupation Additional occupation/education comments: [employer] Gender identity (if verbalized by the patient): Female Sexual Orientation (if Verbalized by the Patient): Straight or Heterosexual Spiritual care concerns: No Exam Narrative: GENERAL: Uncomfortable appearing, morbidly obese with BMI of 62.8, non-toxic, in mild acute distress. HEAD: Normocephalic, atraumatic. NECK: Supple. No adenopathy, no masses. RESPIRATORY: Airway patent, respirations nonlabored. Clear to auscultation bilaterally, no rales, rhonchi, wheezing. CARDIOVASCULAR: Regular rate and rhythm without murmurs, rubs, or gallops. Peripheral pulses 2+ and equal bilaterally. ABDOMINAL: Soft, TTP to left mid and lower abdomen, nondistended, no hepatosplenomegaly. Normoactive BS. No CVA tenderness to percussion. MUSCULOSKELETAL: Moves all extremities. Strength/ROM intact without gross deformities. No significant tenderness to the left flank region. SKIN: Warm, dry, normal color. No rashes. NEURO: A&O X3. Speech clear. Cranial nerves II-XII grossly intact. Steady gait. No ataxic movements. PSYCHIATRIC: Anxious, tearful. Normal interaction. Course Vital Signs Vital signs: Vital Signs Temperature 98.0 F 01/22/23 13:01 Pulse Rate 84 01/22/23 13:01 Respiratory Rate 16 01/22/23 13:01 Blood Pressure 157/100 H 01/22/23 13:01 Pulse Oximetry 100 01/22/23 13:01 Oxygen Delivery Room Air 01/22/23 13:01 Temperature 98.0 F 01/22/23 13:01 Pulse Rate 84 01/22/23 13:01 Respiratory Rate 16 01/22/23 13:01 Blood Pressure 157/100 H 01/22/23 13:01 Pulse Oximetry 100 01/22/23 13:01 Oxygen Delivery Room Air 01/22/23 13:01 MDM - Female Genitourinary MDM Narrative Medical decision making narrative: Patient presented to ED with known left-sided kidney st
[2023-01-22] MEDS: SODIUM CHLORIDE 0.9% IV 1,000 ML 999 ML IV CONT ×2 (15:20→16:54)
[2023-01-22] MEDS: ONDANSETRON INJ 4 MG/2 ML VIAL IV PUSH (15:21)
[2023-01-22] MEDS: MORPHINE SULFATE (*CRX) 4 MG/ML INJ IV PUSH (15:23)
[2023-01-22 18:29] VITALS: BP 144/83; PULSE 84; RESP 18; O2SAT 100
== END 2023-01-22 18:30 | disposition home or self-care (01) ==
PROVIDERS: Preventive Medicine Aerospace Medicine; Emergency Provider Physician Assistant; PCP Nurse Practitioner Family
DX: N13.2 Hydronephrosis with renal and ureteral calculous obstruction (principal); R82.998 Other abnormal findings in urine; J45.909 Unspecified asthma, uncomplicated; I10 Essential (primary) hypertension; Z87.442 Personal history of urinary calculi
CPT/HCPCS: 36415; 74018; 74176; 80053; 81001; 81025; 85025; 87086; 96361; 96374; 96375; 99284; J2270; J2405; J7030